=== PATIENT | female | born 1955 | race Hispanic/Latino ===

== ENCOUNTER 2019-06-27 09:48 | Outpatient (CLI) | payer BC ==
--- NOTE | 2019-06-27 14:56 | Ultrasound Report ---
LEFT DIGITAL DIAGNOSTIC MAMMOGRAM WITH CAD -- 06/27/2019 LEFT COMPLETE BREAST ULTRASOUND INDICATION: Left breast pain and left nipple inversion which has occurred over the last several years . She also reports an episode of bloody left nipple discharge approximately 3 weeks ago. TECHNIQUE: Digital left mammographic imaging was performed. Magnification views were obtained. This examination was interpreted with the benefit of Computer-Aided Detection (CAD) analysis. COMPARISON: 06/15/2018 and 07/26/2018 mammograms FINDINGS: Breast Density: The breasts are heterogeneously dense, which may obscure small masses. MAMMOGRAPHIC FINDINGS: There is no evidence of dominant mass, suspicious calcifications or architectu ral distortion in the left breast. Nipple magnification views demonstrate an inverted nipple which is unchanged compared to the last mammogram. ULTRASOUND FINDINGS: Complete sonographic evaluation of all 4 quadrants and retroareolar region was p erformed. Ultrasound of the left breast demonstrated moderate retroareolar duct ectasia and a quest ionable oval circumscribed solid mass versus complex cyst associated with the nipple measuring 5 mm. This lesion is best identified with a standoff pad. No other mass or cyst of the left breast. IMPRESSION: 1. Left duct ectasia and a questionable 5 mm complex cyst or solid mass associated with the left nipp le. The uncertainty arises from the inherent difficulty in imaging the nipple with ultrasound. It wou ld also be very difficult to confidently place a needle for biopsy. 2. Recommend MRI Breast Bilateral for better evaluation of the left breast. Follow up recommendation: Breast MRI Category 0: Incomplete. Needs additional imaging evaluation and/or prior mammograms for comparison. A "normal" or negative report should not discourage follow up or biopsy of a clinically significant f inding. A written summary of these findings will be mailed to the patient. The patient will be entered into a mammography reporting system which will generate a reminder letter for the patient's next appointmen t at the appropriate interval. According to the [employer], yearly mammograms are recommended starting at age 40 and continuing as long as a woman is in good health. Breast MRI is recommended for women with an chino roximately 20-25% or greater lifetime risk of breast cancer, including women with a strong family his tory of breast or ovarian cancer and women who have been treated for Hodgkin's disease. Signer Name: Noah Champagne MD Signed: 06/27/2019 2:51 PM Workstation Name: [id number]
== END 2019-06-27 09:49 | disposition home or self-care (01) ==
LOC: SPVWC 09:48
PROVIDERS: ATTEND Internal Medicine
DX: N60.42 Mammary duct ectasia of left breast (principal); N64.4 Mastodynia
CPT/HCPCS: 77066

== ENCOUNTER 2019-07-22 08:40 | Outpatient (CLI) | payer BC ==
--- NOTE | 2019-07-24 09:17 | Magnetic Resonance Report ---
BILATERAL BREAST MR WITHOUT AND WITH GADOLINIUM INDICATION: History of a left bloody nipple discharge and a 6 mm complex cyst versus solid mass of t he left nipple by ultrasound. COMPARISONS: 06/21/2019 mammogram and 06/27/2019 mammogram and left breast ultrasound. TECHNIQUE: Axial 1.0 mm T1 without, axial high-resolution 2.0 mm T2 and axial 1.0 mm dynamic vibrant high-resolution postcontrast T1 fat saturation sequences on a 1.5 Lucinda magnet. The examination was p erformed with an 8-channel dedicated [place] breast coil. Post-processing with CAD and subtraction was performed on an [employer] workstation. 15.0 cc of MultiHance was injected without incident for the c ontrast portion of the exam. Consent was obtained prior to the administration of the contrast. FINDINGS: RIGHT BREAST: Minimal background parenchymal enhancement. No mass or suspicious enhancement. Mild foc al enhancement at the office of the right nipple which is a normal finding. The right nipple is inver radha. No suspicious lymph nodes. LEFT BREAST: Minimal background parenchymal enhancement. No mass or suspicious enhancement. No mass o r abnormal enhancement of the left nipple. The left nipple is inverted in a similar fashion as to the right. No suspicious lymph nodes. IMPRESSION: Bilateral benign nipple inversion with no suspicious findings. No lesion of the left nipp le to correlate with the ultrasound finding which is likely a benign finding. Recommend 6 month follo w-up targeted ultrasound of the left breast to reevaluate the left nipple-areolar complex. BI-RADS Category 3: Probably benign Signer Name: Noah Champagne MD Signed: 07/24/2019 9:13 AM Workstation Name: [id number]
== END 2019-07-22 08:41 | disposition home or self-care (01) ==
LOC: SPVIMAG 08:40
PROVIDERS: ATTEND Internal Medicine
DX: R92.8 Other abnormal and inconclusive findings on diagnostic imaging of breast (principal)
CPT/HCPCS: A9577; C8908; 77049